=== PATIENT | male | born 1975 ===

== ENCOUNTER 2019-08-18 10:08 | Emergency (ER) | payer OTHER ==
[2019-08-18 12:10] LABS: Influenza B Molecular POSITIVE (Negative)
--- NOTE | 2019-08-18 12:12 | UC ---
FLU HPI - HPI Summary HPI Summary: 43-year-old male comes in with influenza-like illness the last 5 days. He says fever chills body aches runny nose cough chest congestion. Rather than getting better he's getting worse. His congestion is yellow and green. He has sinus pressure. He has taken [id number] medications which do help with the symptoms. - History of Current Complaint Chief Complaint: UCGeneralIllness Stated Complaint: FEVER Time Seen by Provider: 08/18/19 11:59 Pain Intensity: 2 - Allergy/Home Medications Allergies/Adverse Reactions: Allergies Allergy/AdvReac Type Severity Reaction Status Date / Time No Known Allergies Allergy Verified 08/18/19 10:24 Home Medications: Home Medications Amoxicillin PO (*) [Amoxicillin 875 MG (*)] 875 mg PO BID #20 tab 08/18/19 [Rx] Omeprazole 1 tab PO DAILY 08/18/19 [History Confirmed 08/18/19] PMH/Surg Hx/FS Hx/Imm Hx Previously Healthy: Yes - and she GI/ History: Gastroesophageal Reflux - Surgical History Surgical History: None Surgery Procedure, Year, and Place: denies - Family History Known Family History: Positive: Non-Contributory - Social History Alcohol Use: None Substance Use Type: None Smoking Status (MU): Never Smoked Tobacco Review of Systems All Other Systems Reviewed And Are Negative: Yes Constitutional: Positive: Fever, Chills, Other - SEE HPI Skin: Positive: Negative Eyes: Positive: Negative ENT: Positive: Sore Throat, Ear Ache, Nasal Discharge, Sinus Congestion Respiratory: Positive: Cough, Other - SEE HPO Cardiovascular: Positive: Negative Gastrointestinal: Positive: Negative Motor: Positive: Negative Neurovascular: Positive: Negative Musculoskeletal: Positive: Myalgia Neurological/Mental Status: Positive: Negative Psychological: Positive: Negative Is Patient Immunocompromised?: No Physical Exam Triage Information Reviewed: Yes Appearance: No Pain Distress, Well-Nourished, Ill-Appearing - MILD Vital Signs: Initial Vital Signs Temp 98.9 F 08/18/19 10:21 Pulse 82 08/18/19 10:21 Resp 16 08/18/19 10:21 BP 124/81 08/18/19 10:21 Pulse Ox 100 08/18/19 10:21 Vital Signs Reviewed: Yes Eye Exam: Normal Eyes: Positive: Conjunctiva Clear Neck: Positive: Supple Respiratory: Positive: Lungs clear, Normal breath sounds, No respiratory distress Cardiovascular: Positive: RRR Musculoskeletal: Positive: Strength Intact, ROM Intact Neurological: Positive: Alert, Muscle Tone Normal Psychological: Positive: Age Appropriate Behavior Skin Exam: Normal Flu Course/Dx - Course Course Of Treatment: DISCUSSED VIRAL VERSES BACTERIAL INFECTIONS AND THE ROLE OF ANTIBIOTICS. THE PATIENT PREFERS TO BE ON ANTIBIOTICS AT THIS TIME. Patient's after 48 hours of onset so therefore no Tamiflu. Patient reports he often gets sinusitis and so he would like a prescription for amoxicillin. Will continue to treat symptomatically. Get reevaluated if not improved worse. - Differential Dx/Diagnosis Provider Diagnosis: Influenza, Sinusitis Discharge ED - Sign-Out/Discharge Documenting (check all that apply): Patient Departure All imaging exams completed and their final reports reviewed: No Studies - Discharge Plan Condition: Stable Disposition: HOME Prescriptions: Amoxicillin PO (*) [Amoxicillin 875 MG (*)] 875 mg PO BID #20 tab Patient Education Materials: Sinusitis (ED), Influenza (ED) Referrals: [facility] [place] [facility] [Outside] Additional Instructions: FOLLOW UP WITH YOUR DOCTOR IF NOT COMPLETELY IMPROVED. GET REEVALUATED SOONER IF NOT IMPROVED OR WORSE OR ANY QUESTIONS OR CONCERNS. - Billing Disposition and Condition Condition: STABLE Disposition: Home
== END 2019-08-18 12:40 | disposition home or self-care (01) ==
LOC: UCEAST 10:08
DX: J11.1 Influenza due to unidentified influenza virus with other respiratory manifestations (principal); J32.9 Chronic sinusitis, unspecified; K21.9 Gastro-esophageal reflux disease without esophagitis; Z79.899 Other long term (current) drug therapy
CPT/HCPCS: 99202; G0463

== ENCOUNTER 2019-09-05 19:02 | Emergency (ER) | payer OTHER ==
[2019-09-05 19:13] VITALS: BP 141/79
--- NOTE | 2019-09-05 19:27 | UC ---
General HPI - HPI Summary HPI Summary: 43yo male presenting with tick bite of left lower abdomen. States "it had to have attached yesterday around 3:30pm while out on a hike." States he noticed it this morning when he woke up and removed it without issue. Notes mild redness around area. Denies pain and drainage. - History of Current Complaint Chief Complaint: UCSkin Stated Complaint: TICK BITE Hx Obtained From: Patient Pain Intensity: 3 - Allergy/Home Medications Allergies/Adverse Reactions: Allergies Allergy/AdvReac Type Severity Reaction Status Date / Time apple Allergy scratchy Verified 09/05/19 19:14 throat and mouth elizondo Allergy scratchy Verified 09/05/19 19:14 throat and mouth peach Allergy scratchy Verified 09/05/19 19:14 throat and mouth pear Allergy scratchy Verified 09/05/19 19:14 throat and mouth plum Allergy scratchy Verified 09/05/19 19:14 throat and mouth Home Medications: Home Medications Omeprazole 1 tab PO DAILY 08/18/19 [History Confirmed 09/05/19] PMH/Surg Hx/FS Hx/Imm Hx Previously Healthy: Yes - Surgical History Surgical History: None Surgery Procedure, Year, and Place: denies - Family History Known Family History: Positive: Non-Contributory - Social History Alcohol Use: None Substance Use Type: None Smoking Status (MU): Never Smoked Tobacco Review of Systems All Other Systems Reviewed And Are Negative: Yes Constitutional: Positive: Negative Skin: Positive: Other - tick bite lower abdomen Respiratory: Positive: Negative Cardiovascular: Positive: Negative Gastrointestinal: Positive: Negative Musculoskeletal: Positive: Negative Neurological/Mental Status: Positive: Negative Physical Exam - Summary Physical Exam Summary: Vital Signs Reviewed: Yes A+Ox3, no distress Eyes: Conjunctiva Clear ENT: Hearing grossly normal neck: supple Respiratory: Positive: No respiratory distress, No accessory muscle use Cardiovascular: skin color reflect adequate perfusion Musculoskeletal Exam: ARRIAGA x 4 without difficulty Neurological: Positive: Alert, ambulatory without difficulty Psychological: Positive: age appropriate behavior Skin: Positive: ~1cm round area of erythema noted on left lower abdomen where tick was attached, no drainage, no TTP Vital Signs: Initial Vital Signs Temp 98.1 F 09/05/19 19:09 Pulse 64 09/05/19 19:09 Resp 16 09/05/19 19:09 BP 141/79 09/05/19 19:09 Pulse Ox 100 03/09/20 19:09 Course/Dx - Course Course Of Treatment: Patient with tick attached less than 24 hours. Educated on tick bites and lyme disease. Informed patient that no treatment is needed at this time. Instructed to monitor the area for rash and to follow up with pcp if he experience any new symptoms. Patient voiced understanding and agreed with treatment plan. - Diagnoses Provider Diagnosis: Tick bite of abdominal wall Discharge ED - Sign-Out/Discharge Documenting (check all that apply): Patient Departure All imaging exams completed and their final reports reviewed: No Studies - Discharge Plan Condition: Stable Disposition: HOME Patient Education Materials: Tick Bite (ED) Referrals: [facility] [Outside] [facility] [place] [facility] [Outside] Additional Instructions: As discussed, no treatment is needed for your tick bite. Monitor the area over the next several weeks for rash. Follow up with your primary care provider or one of the referral listed below if you experience a rash or any new symptoms, including fever, body aches/joint pains, muscle weakness, or fatigue. - Billing Disposition and Condition Condition: STABLE Disposition: Home
== END 2019-09-05 19:40 | disposition home or self-care (01) ==
LOC: UCEAST 19:02
DX: S30.861A Insect bite (nonvenomous) of abdominal wall, initial encounter (principal); Z91.018 Allergy to other foods; W57.XXXA Bitten or stung by nonvenomous insect and other nonvenomous arthropods, initial encounter; Y92.9 Unspecified place or not applicable
CPT/HCPCS: 99211; G0463

== ENCOUNTER 2023-07-24 19:08 | Observation (INO) ==
[2023-07-24 19:52] LABS: ABS Basophils 0.1 10^3/uL (0.0-0.1); ABS Eosinophils 0.2 10^3/uL (0.0-0.5); ABS Lymphocytes 3.2 10^3/uL (1.0-4.8); ABS Monocytes 0.6 10^3/uL (0.0-1.1); ABS Neutrophils 3.3 10^3/uL (1.5-7.6); ABS Nucleated RBC 0.01 10^3/ul; Eosinophil % 2.7 %; Hematocrit 41.6 % (38-53); Lymphocyte % 43.2 %; Mean Corpuscular Hemoglobin 30.3 pg (27-33); Mean Corpuscular Hgb Conc 33.7 g/dL (31-36); Mean Platelet Volume 8.2 fL (7.5-11.2); Nucleated Red Blood Cells % 0.1 %/100WBC (0.0-0.8); Platelet Count 286 10^3/uL (150-450); Red Blood Count 4.62 10^6/uL (4.06-5.63); Red Cell Distribution Width 12.7 % (12-17); White Blood Count 7.4 10^3/uL (3.6-10.2)
[2023-07-24 20:03] LABS: Urine Appearance Cloudy; Urine Bilirubin Negative (Negative); Urine Blood 1+ (Negative); Urine Color Yellow; Urine Glucose Negative (Negative); Urine Ketones Trace (Negative); Urine Nitrite Negative (Negative); Urine Protein Negative (Negative); Urine Specific Gravity 1.014 (1.002-1.030); Urine Urobilinogen Negative (Negative)
[2023-07-24 20:10] LABS: Albumin 4.5 g/dL (3.2-5.2); Albumin/Globulin Ratio 1.7 (1-3); C Reactive Protein 41.35 mg/L (<8.01); Calcium 8.9 mg/dL (8.6-10.3); Creatinine, Serum 1.02 mg/dL (0.67-1.17); Globulin 2.6 g/dL (2-4); Potassium 3.6 mmol/L (3.5-5.0); Total Bilirubin 0.6 mg/dL (0.2-1.0); Total Protein 7.1 g/dL (6.4-8.9); eGFR CKD-EPI 91.8 (>60)
[2023-07-24 20:22] LABS: Urine Bacteria Absent (Absent); Urine Red Blood Cell 2+(6-10/hpf) (Absent); Urine White Blood Cell Absent (Absent)
[2023-07-24] MEDS: Iohexol 350 (CONTRAST) 500 ML MDV IV ONE (22:20)
[2023-07-24] MEDS ORDERED: HYDROmorphone 1 MG/1 ML SYRINGE IV SLOW PU PRN (23:24)
[2023-07-24] MEDS: NS 0.9% 1000 ml BAG 1,000 ML IV ONE (23:41)
[2023-07-24] MEDS: Piperacillin/Tazobac 3.375 BAG 3.375 GM/100 ML BAG IV ONE (23:42)
[2023-07-25] MEDS: D5W 1/2 NS KCl 20 meq 1000 ml 1,000 ML IV SCH (00:14)
[2023-07-25] MEDS: ZOSYN 3.375 GM x ONE DOSE over 30 miuntes IV (00:57)
[2023-07-25] MEDS ORDERED: Piperacillin/Tazobac 3.375 BAG 3.375 GM/100 ML BAG IV SCH (05:00)
[2023-07-25] MEDS: Piperacillin/Tazobac 3.375 BAG 3.375 GM/100 ML BAG IV SCH (05:46)
[2023-07-25] MEDS ORDERED: Bupivacaine 0.25% SDV 30 ML ONE (11:25)
[2023-07-25] MEDS ORDERED: Rocuronium 50 mg VIAL 10 mg/ml 5 ml VIAL (50 mg) ONE (12:14)
[2023-07-25] MEDS ORDERED: Succinylcholine 200 mg VIAL 20 mg/ml 10 ml VIAL (200 mg) ONE (12:14)
[2023-07-25] MEDS ORDERED: Desflurane 240 ML INH ONE (12:14)
[2023-07-25] MEDS ORDERED: fentaNYL 100 mcg/2 ml 50 MCG/ML VIAL ONE (12:14)
[2023-07-25] MEDS ORDERED: Midazolam 2 mg/2 ml VIAL 1 mg/ml 2 ml VIAL (2 mg) ONE (12:14)
[2023-07-25 13:42] VITALS: BP 138/87
[2023-07-25] MEDS ORDERED: Naloxone 0.4 mg VIAL 0.4 mg/ml 1 ml VIAL IV PRN ×2 (13:43)
[2023-07-25] MEDS ORDERED: Metoclopramide 5 MG/ML VIAL (10 mg) IV PRN (13:43)
[2023-07-25] MEDS ORDERED: fentaNYL 100 mcg/2 ml 50 MCG/ML VIAL IV PRN (13:43)
[2023-07-25] MEDS ORDERED: Ondansetron 4 mg VIAL 2 MG/ML 2 ml VIAL ONE (14:54)
[2023-07-25] MEDS: Ondansetron 4 mg VIAL 2 MG/ML 2 ml VIAL IV PRN (14:54)
== END 2023-07-25 15:16 | disposition home or self-care (01) ==
LOC: EDHOLD 19:08 → ED 19:08 → SSU 07-25 05:06
PROVIDERS: ADMIT Surgery; ATTEND Surgery